=== PATIENT | male | born 1990 | race African-American/Black ===

== ENCOUNTER 2017-03-24 16:59 | Inpatient (IN) | payer OTHER ==
[~2017-03-24] VITALS: Ht 182.9 cm; Wt 62.6 kg
[2017-03-24] VITALS (10 sets, daily range): BP systolic 86–134; BP diastolic 57–97
--- NOTE | 2017-03-24 17:00 | NUR ---
PT BIBA FROM AN APT- NOTED AMS, BLOOD SUGAR TAKEN ON FIELD READ" HIGH". NOTED LABORED BREATHING, RESPONDS TO PAINFUL STIMULI. IV ACCESS WOODWORK TEACHER. VSS. SAFETY AND COMFORT MEASURES PROVIDED. WILL MONITOR.
--- NOTE | 2017-03-24 17:10 | NUR ---
MEDICATED ORDERD. FC INITIATED.
[2017-03-24] MEDS ORDERED: ONDANSETRON HCL/PF 4 MG/2 ML VIAL ONE (17:20)
[2017-03-24] MEDS ORDERED: IV NS 0.9% 1,000 ML BAG IV ONE ×4 (17:30→18:00)
[2017-03-24] MEDS ORDERED: ONDANSETRON HCL/PF 4 MG/2 ML VIAL IVP ONE (17:30)
[2017-03-24 17:35] LABS: BASOPHILS # (AUTO) 0.1 /CMM (0.0-0.2); BASOPHILS % (AUTO) 0.2 % (0.0-2.0); EOSINOPHILS # (AUTO) 0.1 /CMM (0.0-0.7); EOSINOPHILS % (AUTO) 0.2 % (0.0-6.0); HEMATOCRIT 45 % (39-51); HEMOGLOBIN 13.4 g/dL (13.5-17.5); LYMPHOCYTES # (AUTO) 2.2 /CMM (0.8-4.8); LYMPHOCYTES % (AUTO) 6.9 % (20.0-44.0); MEAN CORPUSCULAR HEMOGLOBIN 31 PG (26.0-33.0); MEAN CORPUSCULAR HGB CONC 30 g/dl (31.0-36.0); MEAN CORPUSCULAR VOLUME 105 fL (80-96); MONOCYTES # (AUTO) 0.7 /CMM (0.1-1.30); MONOCYTES % (AUTO) 2.3 % (2.0-12.0); NEUTROPHILS # (AUTO) 28.4 /CMM (1.8-8.9); NEUTROPHILS % (AUTO) 90.4 % (43.0-81.0); PLATELET COUNT (AUTO) 405 /CMM (150-450); RDW COEFFICIENT OF VARIATION 13.6 (11.5-15.0); RED BLOOD CELL COUNT(AUTO) 4.33 MIL/uL (4.5-6.0)
[2017-03-24 17:43] LABS: WHITE BLOOD COUNT (AUTO) 31.5 K/uL (4.3-11.0)
[2017-03-24 17:50] LABS: INR 0.9 (0.87-1.13); PROTHROMBIN TIME 9.4 SECS (9.5-12.7)
[2017-03-24 17:53] LABS: TROPONIN I < 0.017 ng/mL (0.00-0.056)
[2017-03-24] MEDS ORDERED: PROPOFOL 100 ML IV ONE ×2 (18:10→19:25)
[2017-03-24 18:14] LABS: ABG BASE EXCESS -26.4 mmol/L; ABG OXYGEN SATURATION 91.1 % (92.0-98.5); ABG PCO2 7.2 mmHg (35.0-45.0); ABG PH 7.044 (7.350-7.450); ABG PO2 86.3 mmHg (75.0-100.0); AaDO2 54.8 mmHg; MetHb 0.9 % (0.0-1.5); O2Hb 90.3 % (94.0-97.0); SITE, ABG Right Brachial; VENT MODE, BG ROOM AIR
[2017-03-24] MEDS: INSULIN REGULAR, HUMAN 100 UNIT in IV NS 0.9% 99 ML IV PRN ×4 (18:20→22:12)
[2017-03-24] MEDS: PROPOFOL 100 ML IV PRN ×2 (18:25→22:14)
[2017-03-24 18:26] LABS: ALANINE AMINOTRANSFERASE 108 U/L (12-78); ALBUMIN 3.5 g/dL (3.4-5.0); ALCOHOL, BLOOD < 3 mg/dL (0-0); ALKALINE PHOSPHATASE 141 U/L (46-116); ASPARTATE AMINOTRANSFERASE 41 U/L (15-37); BILIRUBIN,DIRECT 0.1 mg/dL (0.0-0.2); BILIRUBIN,TOTAL 0.4 mg/dL (0.2-1.0); CALCIUM, SERUM 9.4 mg/dL (8.5-10.1); CHLORIDE 82 mmol/L (98-107); CREATININE 2.6 mg/dL (0.6-1.3); SODIUM SERUM 127 mmol/L (136-145); TOTAL PROTEIN, SERUM 6.8 g/dL (6.4-8.2); UREA NITROGEN, BLOOD 44 mg/dL (7-18)
[2017-03-24 18:30] LABS: CARBON DIOXIDE 4 mmol/L (21-32); GLUCOSE 1358 mg/dL (74-106); POTASSIUM 6.7 mmol/L (3.5-5.1)
[2017-03-24] MEDS ORDERED: PROPOFOL 200 MG/20 ML VIAL IV ONE (18:30)
[2017-03-24 18:35] LABS: APPEARANCE,URINE Clear (CLEAR); BILIRUBIN,URINE Negative (NEGATIVE); BLOOD, URINE Trace-lysed Ery/uL (NEGATIVE); COLOR,URINE Yellow (YELLOW); KETONES,URINE >=160 (NEGATIVE); LEUKOCYTE ESTERASE ,URINE Negative (NEGATIVE); NITRITE, URINE Negative (NEGATIVE); PROTEIN,URINE Negative (NEGATIVE); UGLUCOSE 500 MG/DL mg/dL (NEGATIVE); UROBILINOGEN,URINE 0.2 EU/dL (0.2)
--- NOTE | 2017-03-24 18:36 | NUR ---
SUCCESSFULRSI DONE BY DR. PHAM. MEDS GIVEN PER PROTOCOL. RT PRESENT AT BS.
--- NOTE | 2017-03-24 18:39 | NUR ---
PT. IS INTUBATED BY ARNAV DOVER FOR AIRWAY PROTECTION. 7.5 ET TUBE, CUFF INFLATED AND SECURED @ 24 CM LIPLINE. CO2 DETECTOR CHANGED TO GOLD COLOR POST INTUBATION. BREATH SOUNDS CLEAR BILATERAL WITH EQUAL THORACIC EXPANSION. VENT SETTINGS BELLOW ORDER: AC 14 VT 450 FIO2 100% PEEP +5 AMBUBAG @ BEDSIDE. Addendum: 03/24/17 at 1840 by MIHIR PAPPAS RT Amended: Links added.
--- NOTE | 2017-03-24 18:40 | NUR ---
ATBS FOR CENTRAL LINE INSERTION.
[2017-03-24 18:48] LABS: BACTERIA,URINE Rare /HPF (None Seen); RBC,URINE 0-2 /HPF (0-2); SQUAMOUS EPITHELIAL CELL,UR Few /HPF (None Seen); WBC,URINE 0-2 /HPF (0-3)
--- NOTE | 2017-03-24 18:48 | NUR ---
ET TUBE ADJUSTED FROM 24CM TO 25 CM BEN JOSÉ MD. Addendum: 03/24/17 at 1849 by MIHIR PAPPAS RT Amended: Links added.
[2017-03-24] MEDS ORDERED: PIPERACILLIN /TAZOBACTAM 3.375 G in IV D5W 50 ML IV ONE (19:00)
[2017-03-24 19:09] LABS: BAND % (MANUAL) 8 % (0.0-5.0); LYMPHOCYTES % (MANUAL) 11 % (16-48); MONOCYTES % (MANUAL) 4 % (0-11.0); NEUTROPHILS % (MANUAL) 77 (42-76)
[2017-03-24] MEDS ORDERED: NOREPINEPHRINE 4 MG/4 ML AMPUL IV ONE ×2 (19:10→19:14)
[2017-03-24] MEDS ORDERED: MIDAZOLAM HCL 5 MG/5ML VIAL ONE (19:22)
[2017-03-24] MEDS ORDERED: MIDAZOLAM HCL 5 MG/5ML VIAL IV ONE (19:30)
[2017-03-24 19:35] LABS: ABG BASE EXCESS -25.5 mmol/L; ABG PCO2 19.1 mmHg (35.0-45.0); ABG PH 6.985 (7.350-7.450); COHb 0.3 % (0.5-1.5); MetHb 0.8 % (0.0-1.5); O2Hb 97.9 % (94.0-97.0); PEEP,BG 0 cm H2O; SITE, ABG Right Brachial; VENT MODE, BG AC 14 450 100%; VT, ABG 450 mL
--- NOTE | 2017-03-24 19:36 | NUR ---
REPORT GIVEN TO EULA TIMMONS FOR ICU 257
[2017-03-24] MEDS ORDERED: PIPERACILLIN /TAZOBACTAM 3.375 G VIAL IV ONE (19:41)
--- NOTE | 2017-03-24 19:52 | NUR ---
PT TRANSPORTED TO ICU VIA STRETCHER WITH RN AND RT, ACLS PROTOCOL.
[2017-03-24] MEDS ORDERED: NOREPINEPHRINE 8 MG in IV D5W 500 ML IV PRN (20:00)
[2017-03-24] MEDS ORDERED: INSULIN REGULAR, HUMAN 100 UNIT in IV NS 0.9% 99 ML IV PRN ×2 (20:00)
[2017-03-24] MEDS ORDERED: LORAZEPAM INJ 2 MG/ML VIAL IVP PRN (20:00)
[2017-03-24] MEDS ORDERED: IV NS 0.9% 1,000 ML IV PRN (20:00)
[2017-03-24] MEDS ORDERED: VANCOMYCIN 1 GM in IV D5W 250 ML IV ONE (20:00)
--- NOTE | 2017-03-24 20:00 | NUR ---
FURNITURE DIPPER. TEMPERATURE 93.2 JAMIE YECENIA INITIATED.0000 TEMPERATURE 97.4. JAMIE YECENIA OFF.
[2017-03-24] MEDS ORDERED: BLOOD SUGAR DIAGNOSTIC 1 EACH STRIP IN ONE ×2 (21:00→21:30)
[2017-03-24] MEDS: ALBUTEROL FS 2.5 MG/3 ML VIAL.NEB NEB SCH (21:00)
[2017-03-24] MEDS: BLOOD SUGAR DIAGNOSTIC 1 EACH STRIP IN SCH ×3 (21:17→23:14)
--- NOTE | 2017-03-24 21:25 | NUR ---
DIMENSION STONE QUARRY SUPERVISOR: RELAYED TO EULA PRIMARY NURSE AND ARMANDO Boo CHARGE NURSE ACCUCHEK RESULTS ABOVE 600 FOR 1999 AND 2099 AND LACTIC ACID=3.0.
[2017-03-24] MEDS ORDERED: VANCOMYCIN 1 GM VIAL ONE (21:33)
[2017-03-24 21:35] LABS: ABG BASE EXCESS -17.6 mmol/L; ABG OXYGEN SATURATION 98.8 % (92.0-98.5); ABG PCO2 30.1 mmHg (35.0-45.0); ABG PH 7.143 (7.350-7.450); ABG PO2 262.2 mmHg (75.0-100.0); AaDO2 132.5 mmHg; COHb 0.2 % (0.5-1.5); MetHb 0.9 % (0.0-1.5); O2Hb 97.7 % (94.0-97.0); PEEP,BG 0 cm H2O; SITE, ABG Right Brachial
[2017-03-24] MEDS ORDERED: BLOOD SUGAR DIAGNOSTIC 1 EACH STRIP IN STA ×3 (22:20→23:00)
--- NOTE | 2017-03-24 22:59 | NUR ---
FAST FOOD CREW MEMBER. ADMISSION. ADMITTED THE PT FROM ER VIA [facility]. ORALLY INTUBATED SEDATED WITH DIPRIVAN, DIAGNOSED WITH DKA AND SEPSIS. ETT 7.5CM,AC 18,LIP 24CMS, TV 450,FIO2 60%. SAT 100%, DRIP MOLDER SHOWING NSR. IV RT IJ TRIPLE LUMEN DIPRIVAN 50MCG/KG/MIN, LEVOPHED 14MCG/MIN. INSULIN 5UNITS. FC PATENT. OGT INTACT. TEMPERATURE 93. BAGGER HUGGER PLACED. WILL CONTINUE TO MONITOR.
--- NOTE | 2017-03-24 23:03 | NUR ---
AIRCRAFT SALES REPRESENTATIVE. 2100, 2200. 2300 BLOOD SUGAR NOT SHOWING ICU GLUCOMETER. CALLED THE LAB AND CHECKED. BLOOD SUGAR >600. INSULIN DRIP RUNNING PER PROTOCOL. WILL CONTINUE TO MONITOR.
[2017-03-25] VITALS (68 sets, daily range): BP systolic 76–153; BP diastolic 50–102
--- NOTE | 2017-03-25 | NUR ---
BALLOON TESTER. PT BLOOD SUGAR 2100, 2200, 2300 >600.INSULIN DRIP STARTED PER PROTOCOL ALGORITHM#.4BLOOD SUGAR 494. ALGORITHM #1 INSULIN DRIP PROTOCOL INITIATED.
[2017-03-25] MEDS ORDERED: INSULIN REGULAR, HUMAN 100 UNIT/ML 3 ML VIAL ONE (00:04)
[2017-03-25] MEDS ORDERED: PIPERACILLIN /TAZOBACTAM 3.375 G VIAL IV ONE ×2 (00:10→06:03)
[2017-03-25 00:39] LABS: CALCIUM, SERUM 8.6 mg/dL (8.5-10.1); CREATININE 2.3 mg/dL (0.6-1.3); POTASSIUM 3.3 mmol/L (3.5-5.1)
[2017-03-25] MEDS ORDERED: ACETAMINOPHEN 325 MG TABLET ONE (00:48)
[2017-03-25] MEDS: ACETAMINOPHEN 325 MG TABLET PO PRN ×3 (00:50→14:00)
[2017-03-25] MEDS: ALBUTEROL FS 2.5 MG/3 ML VIAL.NEB NEB SCH ×3 (01:00→20:21)
[2017-03-25] MEDS: BLOOD SUGAR DIAGNOSTIC 1 EACH STRIP IN SCH ×14 (01:06→21:32)
[2017-03-25] MEDS: PIPERACILLIN /TAZOBACTAM 3.375 G in IV D5W 50 ML IV SCH ×5 (01:07→23:40)
--- NOTE | 2017-03-25 01:12 | NUR ---
HEATER TENDER. SEPSIS REASSESSMENT ER DONE.
--- NOTE | 2017-03-25 01:13 | NUR ---
CONTACT LENS MOLDER. AFTER FLUID REASSESSMENT ER DONE. 4L NS GIVEN FROM ER.
[2017-03-25] MEDS ORDERED: POTASSIUM CL. PREMIX PERIPHER. 50 ML IV SCH (01:30)
[2017-03-25] MEDS ORDERED: IV NS 0.9% 1,000 ML BAG IV PRN (01:30)
--- NOTE | 2017-03-25 01:46 | NUR ---
PT WAS AGITATED DIPRIVAN INCREASED UP TO 100MCG/KG/MIN. PER DR HEALY.
[2017-03-25] MEDS ORDERED: IV NS 0.9% 1,000 ML IV PRN (02:00)
[2017-03-25] MEDS ORDERED: POTASSIUM CL. PREMIX PERIPHER. 50 ML ONE (02:10)
[2017-03-25] MEDS ORDERED: POTASSIUM CHLORIDE 20 MEQ POWDER PACKET ONE (02:14)
[2017-03-25] MEDS ORDERED: Thiamine 100 MG/ML VIAL ONE (02:26)
[2017-03-25] MEDS: PROPOFOL 100 ML IV PRN ×3 (02:28→07:29)
[2017-03-25] MEDS ORDERED: POTASSIUM CHLORIDE 20 MEQ POWDER PACKET GT ONE (02:30)
[2017-03-25] MEDS: INSULIN REGULAR, HUMAN 100 UNIT in IV NS 0.9% 99 ML IV PRN ×2 (02:31)
[2017-03-25] MEDS: Thiamine 100 MG in IV D5W 50 ML IV SCH ×3 (02:33→18:11)
[2017-03-25] MEDS ORDERED: Folic acid 1 MG/0.2 ML VIAL ONE (02:53)
--- NOTE | 2017-03-25 03:00 | NUR ---
MULTIMEDIA SERVICES COORDINATOR. DR HEALY AT BED SIDE ASSESS THE PT. NEW ORDER RECEIVED.
[2017-03-25] MEDS: Folic acid 1 MG in IV D5W 50 ML IV SCH ×3 (03:08→18:11)
--- NOTE | 2017-03-25 03:54 | NUR ---
BILL PEDDLER LEVO OFF 2100. RECEIVED THE PT BP 130/67. TITRATE AND HELD
[2017-03-25] MEDS ORDERED: IV D5W 1,000 ML IV ONE (04:30)
[2017-03-25] MEDS ORDERED: IV D5/ 0.9% NACL 1,000 ML IV PRN (04:30)
[2017-03-25 05:06] LABS: BASOPHILS % (AUTO) 0.1 % (0.0-2.0); HEMATOCRIT 36 % (39-51); LYMPHOCYTES # (AUTO) 1.6 /CMM (0.8-4.8); LYMPHOCYTES % (AUTO) 6.4 % (20.0-44.0); MEAN CORPUSCULAR HEMOGLOBIN 31 PG (26.0-33.0); MEAN CORPUSCULAR HGB CONC 33 g/dl (31.0-36.0); MEAN CORPUSCULAR VOLUME 93 fL (80-96); MONOCYTES # (AUTO) 2.1 /CMM (0.1-1.30); MONOCYTES % (AUTO) 8.9 % (2.0-12.0); NEUTROPHILS # (AUTO) 20.5 /CMM (1.8-8.9); NEUTROPHILS % (AUTO) 84.6 % (43.0-81.0); PLATELET COUNT (AUTO) 306 /CMM (150-450); RDW COEFFICIENT OF VARIATION 13.1 (11.5-15.0); RED BLOOD CELL COUNT(AUTO) 3.85 MIL/uL (4.5-6.0); WHITE BLOOD COUNT (AUTO) 24.3 K/uL (4.3-11.0)
[2017-03-25 05:16] LABS: PROTHROMBIN TIME 10.4 SECS (9.5-12.7)
[2017-03-25 05:23] LABS: ALBUMIN 2.8 g/dL (3.4-5.0); BILIRUBIN,TOTAL 0.3 mg/dL (0.2-1.0); CALCIUM, SERUM 8.6 mg/dL (8.5-10.1); CREATININE 2.1 mg/dL (0.6-1.3); POTASSIUM 4.9 mmol/L (3.5-5.1); TOTAL PROTEIN, SERUM 5.9 g/dL (6.4-8.2)
[2017-03-25 05:31] LABS: CREATINE KINASE MB 17.9 ng/mL (0-3.6)
[2017-03-25 05:42] LABS: TROPONIN I 1.831 ng/mL (0.00-0.056)
[2017-03-25 05:43] LABS: IRON, SERUM 8 ug/dl (50-175); TOTAL IRON BINDING CAPACITY 231 ug/dl (250-450)
--- NOTE | 2017-03-25 06:30 | NUR ---
MECHANICAL MANUFACTURING ENGINEER. AM CARE. ORAL CARE, BED BATH GIVEN LINEN CHANGED, REMAINING SAME VENT SETTING TOLERATED WELL. SAT 98%. NO ACUTE DISTRESS NOTED. DENTAL RESIDENT SHOWING S TACH. . IV RT IJ DIPRIVAN 100MCG/KG/MIN,INSULIN DRIP PER GLUCOSE LEVEL. IVF D5NS 200ML/H. FC PATENT. TEMPERATURE 101.4AT 0200. TYLENOL GIVEN PER ORDERED. AT THIS TIME TEMP 99.3. OGT INTACT. CLAMPED. NPO. HOB ELEVATED. TURN AND REPOSITION Q2H. DENZEL SOFT WRIST RESTRAINT CHECKED AND RELEASED, NO INJURY OR REDNESS NOTED. NPO./WILL CONTINUE TO MONITOR VITALS.
--- NOTE | 2017-03-25 06:45 | NUR ---
MARKET DEVELOPMENT DIRECTOR. PT INFORMATION GIVEN FATHER , SISTER AND ROOM MATE. ROOM MATE SPEEDY CELL NO [phone].
[2017-03-25 07:28] LABS: BAND % (MANUAL) 6 % (0.0-5.0); LYMPHOCYTES % (MANUAL) 6 % (16-48); MONOCYTES % (MANUAL) 2 % (0-11.0); NEUTROPHILS % (MANUAL) 86 (42-76)
--- NOTE | 2017-03-25 08:00 | NUR ---
PT SEDATED WITH DIPRIVAN, REACTS PT TACTILE STIMULI. NO PRESSORS, VSS. INSULIN GTT DECREASED TO 1 U/HR.
--- NOTE | 2017-03-25 08:00 | NUR ---
DIPRIVAN AT 100 MICS. PT OPENS EYES DOES FOLLOW COMMANDS, STRONGLY COUGHING AND BITING ETT WHEN SUCTIONED. TITRATED DOWN TO 50MIC.
[2017-03-25] MEDS ORDERED: HYDROMORPHONE INJ 2 MG/ML DISP.SYRIN IV PRN (08:30)
[2017-03-25 08:33] LABS: ABG PCO2 41.4 mmHg (35.0-45.0); ABG PH 7.368 (7.350-7.450); ABG PO2 193.7 mmHg (75.0-100.0); SITE, ABG Right Radial
[2017-03-25 08:34] LABS: ABG BASE EXCESS -1.9 mmol/L; AaDO2 43.9 mmHg; COHb 0.3 % (0.5-1.5); MetHb 1.2 % (0.0-1.5); O2Hb 96.5 % (94.0-97.0); PEEP,BG 5 cm H2O; VT, ABG 450 mL
[2017-03-25] MEDS ORDERED: FEE PK DOSING 1 MIN EA MC ONE (08:52)
--- NOTE | 2017-03-25 09:12 | NUR ---
MALE PT RECEIVED ORALLY INTUBATED WITH 7.5 ET-TUBE SECURED AT 24CM. WITH BLUE STABILIZER. SETTINGS ORDERED. FIO2 DECREASED TO .30 ZERO DISTRESS NOTED AT THIS TIME. ALARMS SET AND AUDIBLE. PT CURRENTLY SEDATED. B/S EQUAL. SPO2 99% ABG DONE AND IN NORMAL RANGE. RN AWARE OF CHANGED
[2017-03-25] MEDS: PANTOPRAZOLE 40 MG VIAL IV SCH (09:32)
[2017-03-25] MEDS: VANCOMYCIN 0.75 GM in IV D5W 250 ML IV SCH ×2 (09:32→21:34)
[2017-03-25] MEDS: HEPARIN SODIUM, PORCINE 5000 UNITS/1 ML VIAL SQ SCH ×2 (09:33→21:33)
[2017-03-25] MEDS: IV NS 0.9% 1,000 ML IV PRN ×2 (09:38→17:10)
[2017-03-25] MEDS ORDERED: PROPOFOL 100 ML IV PRN (10:30)
[2017-03-25] MEDS ORDERED: DEXTROSE 50%-WATER 50 ML DISP.SYRIN IV PRN (12:00)
[2017-03-25] MEDS: INSULIN REGULAR, HUMAN 100 UNIT/ML 3 ML VIAL SQ PRN ×2 (12:17→16:42)
--- NOTE | 2017-03-25 12:21 | NUR ---
INSULIN GTT D/C AT 1200 PER VALERY LARKIN. PB 229 8UNITS PER ZION WARD.
[2017-03-25] MEDS ORDERED: BLOOD SUGAR DIAGNOSTIC 1 EACH STRIP IN SCH ×2 (13:00)
--- NOTE | 2017-03-25 14:00 | NUR ---
ST UP TO 126 ON MONITOR RECTAL TEMP 100.1 TYLENOL AND COOLING MEASURES INITIATED.
[2017-03-25 14:56] LABS: CALCIUM, SERUM 8.4 mg/dL (8.5-10.1); CREATININE 2.7 mg/dL (0.6-1.3); POTASSIUM 4.7 mmol/L (3.5-5.1)
--- NOTE | 2017-03-25 15:04 | NUR ---
PROPOFOL OFF. PT PLACED ON CPAP PS OF 8. RR 18 -20
--- NOTE | 2017-03-25 16:00 | NUR ---
TEMP 99.6 NOW. PT CONTINUES ON CPAP. RR18-22 SAT 100%, PT WAKES UP TO TACTILE STIMULI BUT, DOES NOT FOLLOW COMMANDS AT THIS TIME.
--- NOTE | 2017-03-25 19:00 | NUR ---
PT'S FAMILY UPDATED ON PT'S PROGRESS. PT CONTINUES ON CPAP. RR18-22 SAT 100%, PT WAKES UP TO TACTILE STIMULI BUT, STILL DOES NOT FOLLOW COMMANDS.
--- NOTE | 2017-03-25 20:00 | NUR ---
KAPOK MACHINE OPERATOR -NOTES - PT RECEIVED IN BED, ASLEEP, NOT WAKING UP, OFF SEDATION SINCE 1500. PT IS INTUBATED WITH 7.5 ETT 24 CM AT LIP, PT IS ON CPAP, PRESSURE SUPPORT 8, FI02 30%, TV 450. PT IS IN SINUS TACHYCARDIA HR 110S, BP 130S-150S. PT IS NPO WITH OGT CLAMPED, ACCUCHECK Q4H. PT HAS F/C WITH GOOD URINE OUTPUT. SKIN INTACT. PT HAS R AC 18G, L AC 18G, AND R SUBCLAVIAN CENTRAL TLC. WILL CONTINUE TO MONITOR
--- NOTE | 2017-03-25 21:30 | NUR ---
PT WAS SUCTIONED, THEN PT STARTED TO GET UP AND TRY TO PULL ETT FOR APPROX 5 MINS, DID NOT FOLLOW COMMANDS, BUT WAS VERY STRONG WITH HIS ARMS AND KICKING UP WITH LEGS. AFTER A WHILE, PT WENT BACK TO SLEEP. FAMILY SISTER SARA AT BEDSIDE,
--- NOTE | 2017-03-25 22:00 | NUR ---
PTS FATHER DEBO MCNEIL CALLED, UPDATED ON PT CONDITION AND PLAN OF CARE
[2017-03-26] VITALS (43 sets, daily range): BP systolic 124–170; BP diastolic 74–107
[2017-03-26] MEDS: BLOOD SUGAR DIAGNOSTIC 1 EACH STRIP IN SCH ×6 (00:27→21:00)
[2017-03-26] MEDS: INSULIN REGULAR, HUMAN 100 UNIT/ML 3 ML VIAL SQ PRN ×5 (00:30→22:06)
[2017-03-26] MEDS: IV NS 0.9% 1,000 ML IV PRN ×3 (00:48→11:45)
--- NOTE | 2017-03-26 01:00 | NUR ---
PT OPENED EYES, TRIED TO GET UP OUT OF BED, LOOKED AT ME, DID NOT FOLLOW COMMANDS, THEN WENT BACK TO SLEEP
--- NOTE | 2017-03-26 01:30 | NUR ---
PTS FATHER ASHLEY MCNEIL CALLED, UPDATED ON PT CONDITION AND PLAN OF CARE
[2017-03-26] MEDS: ALBUTEROL FS 2.5 MG/3 ML VIAL.NEB NEB SCH ×4 (01:42→19:44)
--- NOTE | 2017-03-26 04:45 | NUR ---
PT AWAKE AGAIN, NOW FOLLOWING COMMANDS, ABLE TO ANSWER QUESTIONS APPROPRIATELY, PT IS VERY STRONG AND PULLING RESTRAINTS TO PULL OUT ETT, PT NODS YES THAT HE WANTS TO BE EXTUBATED, SO WITH RT NARENDRA AND PULVERIZER FEEDER INGA, WE EXTUBATED THE PATIENT. HIS VOICE WAS VERY HOARSE, AND THEN HE WENT BACK TO SLEEP, NO DIFFICULTY BREATHING, ABLE TO CLEAR SECRETIONS, 02SAT 100% ON ROOM AIR.
[2017-03-26 05:24] LABS: BASOPHILS % (AUTO) 0.2 % (0.0-2.0); EOSINOPHILS % (AUTO) 0.2 % (0.0-6.0); HEMATOCRIT 35 % (39-51); HEMOGLOBIN 11.1 g/dL (13.5-17.5); LYMPHOCYTES # (AUTO) 1.9 /CMM (0.8-4.8); LYMPHOCYTES % (AUTO) 11.5 % (20.0-44.0); MEAN CORPUSCULAR HEMOGLOBIN 30 PG (26.0-33.0); MEAN CORPUSCULAR HGB CONC 32 g/dl (31.0-36.0); MEAN CORPUSCULAR VOLUME 94 fL (80-96); MONOCYTES % (AUTO) 5.9 % (2.0-12.0); NEUTROPHILS # (AUTO) 13.8 /CMM (1.8-8.9); NEUTROPHILS % (AUTO) 82.2 % (43.0-81.0); PLATELET COUNT (AUTO) 211 /CMM (150-450); RDW COEFFICIENT OF VARIATION 13.8 (11.5-15.0); RED BLOOD CELL COUNT(AUTO) 3.66 MIL/uL (4.5-6.0); WHITE BLOOD COUNT (AUTO) 16.7 K/uL (4.3-11.0)
[2017-03-26 05:29] LABS: ALBUMIN 2.5 g/dL (3.4-5.0); BILIRUBIN,TOTAL 0.3 mg/dL (0.2-1.0); CALCIUM, SERUM 8.5 mg/dL (8.5-10.1); CREATININE 2.5 mg/dL (0.6-1.3); MAGNESIUM 2.5 mg/dL (1.8-2.4); PHOSPHORUS 3.1 mg/dL (2.5-4.9); POTASSIUM 4.1 mmol/L (3.5-5.1); TOTAL PROTEIN, SERUM 5.6 g/dL (6.4-8.2)
[2017-03-26 05:41] LABS: TROPONIN I 1.369 ng/mL (0.00-0.056)
[2017-03-26] MEDS: PIPERACILLIN /TAZOBACTAM 3.375 G in IV D5W 50 ML IV SCH ×4 (06:12→23:33)
[2017-03-26 07:34] LABS: ABG BASE EXCESS -1.9 mmol/L; ABG PCO2 38.1 mmHg (35.0-45.0); ABG PH 7.393 (7.350-7.450); ABG PO2 78.7 mmHg (75.0-100.0); AaDO2 25.4 mmHg; COHb 0.3 % (0.5-1.5); MetHb 0.9 % (0.0-1.5); O2Hb 93.9 % (94.0-97.0); SITE, ABG Right Radial; VENT MODE, BG ROOM AIR
--- NOTE | 2017-03-26 07:55 | NUR ---
ICU/RN INITIAL NOTES,AM RECEIVED REPORT FROM NIGHT NURSE. PT EXTUBATED OVERNIGHT. AT THIS TIME PT IS SLEEPY AND DIFFICULT TO AROUSE. RESPONDS TO PAINFUL STIMULI, OPENS EYES THEN GOES BACK TO SLEEP. WAS AT BEDSIDE. ORDERS FOR STAT ABG RECEIVED, WHEN RESULTED WNL, BS 218. PT ON ROOM AIR, MAINTAINING 02 SAT 99-100%, NO DISTRESS OR DIFFICULTY BREATHING NOTED. RIGHT SUBCLAVIAN CENTRAL LINE IN PLACE. IV FLUIDS INFUSING ORDERED. JAQUEZ IN PLACE DRAINING YELLOW URINE. PT NPO AT THIS TIME. ALL NEEDS WILL BE ATTENDED TO, SAFETY MEASURES TAKEN, BED IN LOW POSITION, SIDE RIALS UP, CALL LIGHT WITHIN REACH. WILL CONTINUE TO CLOSELY MONITOR PT.
--- NOTE | 2017-03-26 08:23 | NUR ---
RT HHN TX NOT GIVEN DUE TO TACHYCARDIA.
[2017-03-26] MEDS: HEPARIN SODIUM, PORCINE 5000 UNITS/1 ML VIAL SQ SCH ×2 (08:50→21:23)
[2017-03-26] MEDS: PANTOPRAZOLE 40 MG VIAL IV SCH (08:50)
[2017-03-26] MEDS: VANCOMYCIN 0.75 GM in IV D5W 250 ML IV SCH (08:52)
[2017-03-26] MEDS: Folic acid 1 MG in IV D5W 50 ML IV SCH (10:33)
[2017-03-26] MEDS: Thiamine 100 MG in IV D5W 50 ML IV SCH (10:33)
--- NOTE | 2017-03-26 11:30 | NUR ---
ICU/RN: PT UPDATE PT ALERT, FOLLOWS COMMANDS. AAOX3. NO DISTRESS. NURSING SWALLOW EVAL DONE. NO ISSUES NOTED. PER MD ADVANCED DIET. WILL CONTINUE TO MONITOR AND ASSESS
[2017-03-26] MEDS: IV 1/2NS 1000 ML 1,000 ML IV PRN (12:44)
[2017-03-26] MEDS: FOLIC ACID 1 MG TABLET PO SCH (17:24)
[2017-03-26] MEDS: THIAMINE HCL 100 MG TABLET PO SCH (17:24)
--- NOTE | 2017-03-26 18:43 | NUR ---
ICU/RN ENDING NOTES,AM REPORT WILL BE ENDORSED TO NIGHT NURSE FOR CONTINUATION OF CARE. PT ALERT, FOLLOWS COMMANDS. ON ROOM AIR, NO ACUTE DISTRESS NOTED, SINUS TACHY ON TELE. ALL NEEDS ATTENDED TO, BED BATH GIVEN, LINENS CHANGED. SAFETY MEASURES TAKEN, BED IN LOW POSITION, SIDE RAILS UP, CALL LIGHT WITHIN REACH. WILL CONTINUE CARE.
--- NOTE | 2017-03-26 21:00 | NUR ---
TOUR AGENT - REC'D REPORT FROM HANSEL RN. REC'D PT. VERY DROWSY, SLOW TO ANSWER QUESTIONS ASKED. ACCU-CHECK=#408, REPEATED = #438. DR. MONET ZARAGOZA PHONED. ORDERS REC'D. PT. WAS ADM. W/REG. INSULIN AT 20UNITS/SQ. JAQUEZ CATH TO GRAVITY W/GOOD UOP. PT. IS BEGGING FOR H20. PT. ALREADY DRANK ONE PITCHER. PT.IS ON R/A & IS SATTING >96%. LOW GRADE TEMPS. PT'S SISTER AT BS. PT. STATES HE IS HUNGRY. UNSWEETENED APPLESAUCE GIVEN TO PT. SKIN INTACT. RSC-TL HAS 0.45%NS INFUSING AT 75CC/HR. CONT. POC.
[2017-03-26] MEDS: VANCOMYCIN 1 GM in IV D5W 250 ML IV SCH (21:22)
[2017-03-27] VITALS (27 sets, daily range): BP systolic 124–162; BP diastolic 80–112
--- NOTE | 2017-03-27 01:00 | NUR ---
TRUER PINION AND WHEEL - PT'S GLUCOSE IS #233/PT. COVERED W/8 UNITS OF REG. INSULIN. PT'S ORAL TEMP AT 101.9. TYLENOL 650MG/PO ADM. COOLING MEASURES STARTED. CONT. POC.
[2017-03-27] MEDS: ACETAMINOPHEN 325 MG TABLET PO PRN ×4 (01:19→23:36)
[2017-03-27] MEDS: INSULIN REGULAR, HUMAN 100 UNIT/ML 3 ML VIAL SQ PRN ×7 (01:23→23:54)
[2017-03-27] MEDS: ALBUTEROL FS 2.5 MG/3 ML VIAL.NEB NEB SCH ×2 (01:30→19:30)
[2017-03-27] MEDS: BLOOD SUGAR DIAGNOSTIC 1 EACH STRIP IN SCH ×7 (02:14→23:52)
[2017-03-27 05:12] LABS: BASOPHILS % (AUTO) 0.3 % (0.0-2.0); EOSINOPHILS % (AUTO) 0.4 % (0.0-6.0); HEMATOCRIT 30 % (39-51); HEMOGLOBIN 10.2 g/dL (13.5-17.5); LYMPHOCYTES # (AUTO) 1.3 /CMM (0.8-4.8); LYMPHOCYTES % (AUTO) 16.5 % (20.0-44.0); MEAN CORPUSCULAR HEMOGLOBIN 31 PG (26.0-33.0); MEAN CORPUSCULAR HGB CONC 34 g/dl (31.0-36.0); MEAN CORPUSCULAR VOLUME 92 fL (80-96); MONOCYTES # (AUTO) 0.4 /CMM (0.1-1.30); MONOCYTES % (AUTO) 5.1 % (2.0-12.0); NEUTROPHILS # (AUTO) 6.2 /CMM (1.8-8.9); NEUTROPHILS % (AUTO) 77.7 % (43.0-81.0); PLATELET COUNT (AUTO) 153 /CMM (150-450); RDW COEFFICIENT OF VARIATION 13.5 (11.5-15.0); RED BLOOD CELL COUNT(AUTO) 3.29 MIL/uL (4.5-6.0)
[2017-03-27] MEDS: PIPERACILLIN /TAZOBACTAM 3.375 G in IV D5W 50 ML IV SCH ×4 (05:20→23:30)
[2017-03-27] MEDS: IV 1/2NS 1000 ML 1,000 ML IV PRN (05:29)
[2017-03-27 05:40] LABS: ALBUMIN 2.2 g/dL (3.4-5.0); BILIRUBIN,TOTAL 0.5 mg/dL (0.2-1.0); CALCIUM, SERUM 8.4 mg/dL (8.5-10.1); CREATININE 1.4 mg/dL (0.6-1.3); MAGNESIUM 1.8 mg/dL (1.8-2.4); PHOSPHORUS 1.7 mg/dL (2.5-4.9); TOTAL PROTEIN, SERUM 5.6 g/dL (6.4-8.2)
[2017-03-27 05:43] LABS: TROPONIN I 0.417 ng/mL (0.00-0.056)
--- NOTE | 2017-03-27 06:30 | NUR ---
DESPATCH CLERK - A COMPLETE BEDBATH ADM. AT 2AM. PT. HAD LARGE AMT. OF DIARRHEA IN BEDPAN. TROPONIN LEVEL PHONED IN FROM LAB - #[phone]. VALUE IS TRENDING DOWNWARD. 5AM BS = #228, PT. COVERED W/8 UNITS OF REG. INSULIN. PT. IS RESTING W/EYES CLOSED. REPORT EN - DORSED TO CARLOS EDUARDO ITMMONS. CONT. POC.
--- NOTE | 2017-03-27 07:40 | NUR ---
NIGHT COURT MAGISTRATE NOTE PATIENT IN BED ,RESTING COMFORTABLY , ON TELE MONITOR ST 114 ,ON RA NO SOB NOTED AT THIS TIME SAT 95%, NOTED T 101.5 WILL START COOLING MEASURE , WITH JAQUEZ CATH WITH YELLOW COLOR URINE , ON IVF ORDERED , BED IN LOWEST AND LOCKED POSITION ,ON IVF ORDERED. WILL CONT TO MONITOR CLOSELY
[2017-03-27] MEDS: THIAMINE HCL 100 MG TABLET PO SCH ×2 (08:22→17:10)
[2017-03-27] MEDS: PANTOPRAZOLE 40 MG VIAL IV SCH (08:22)
[2017-03-27] MEDS: FOLIC ACID 1 MG TABLET PO SCH ×2 (08:22→17:10)
[2017-03-27] MEDS: HEPARIN SODIUM, PORCINE 5000 UNITS/1 ML VIAL SQ SCH ×2 (08:28→21:55)
[2017-03-27] MEDS: VANCOMYCIN 1 GM in IV D5W 250 ML IV SCH ×2 (08:31→21:52)
--- NOTE | 2017-03-27 12:31 | NUR ---
Social service consult requested by IRIS Lugo for alcohol abuse. Pt. is a 27 year old male who was admitted to [facility] for DKA. SW met with pt. bedside. Pt. is alert and oriented x 3. Pt. states he resides with his sister Concepción's ex at [facility], in [place]. Pt. sister Concepción is his emergency contact and can be reached at . Pt. was asking for his lunch. SW informed him it should arrive shortly. Pt. denies extensive alcohol abuse and states he only drinks sometimes and when he does it usually is beer and vodka. Pt. denies doing any drugs. Pt. smokes marijuana and cigarettes but would not elaborate as to much marijuana and how many cigarettes per day. Pt. suffers from Depression and Anxiety and does not take any medication for it at this time. SW offered pt. if he would like to see a psychiatrist. Pt. stated maybe later. Pt. denies suicidal/homicidal ideations and visual/auditory hallucinations at this time. RANDALL updated IRIS Melendez and ICU nurse discharge Gil regarding pt. needing a psych. consult when downgraded to med surg floor. No other social service needs are requested at this time. SW is available if needed.
--- NOTE | 2017-03-27 12:33 | NUR ---
TANK SYSTEMS MAINTAINER NOTE SEEN BY ARNOLDO DICKINSON RN SAS ARCHITECT AND DR CLAIRE NOTIFIED THAT BOTH HANDS AND RT ARM WITH SWELLING, KEEP ELEVATED TOLERATED ALSO NOTIFIED THAT T 101.9 TYLENOL EARLIER GIVEN EARLIER AND BLOOD SUGAR LATEST 174 MG\ DL ON AGGRESSIVE SLIDING SCALE , STATED GET BLOOD CX AND REMOVE CENTRAL LINE AND REMOVE JAQUEZ ALSO INFORM THAT PATIENT HAS LOOSE STOOL,NO ODOR NOTED SMALL AMT , SPOKE WITH ARNOLDO TIMMONS SAS ARCHITECT NOTIFIED RHIANNA PER US TECH PATIENT HAS 470 ML URINE RETAINED , STILL OK TO REMOVE JAQUEZ WILL F\U Addendum: 03/27/17 at 1505 by CARLOS EDUARDO MIGUEL RN NOTIFIED TO ROBIN TIMMONS NP THAT SBP 145-157 STATED THAT WILL CHECK IT OUT
--- NOTE | 2017-03-27 14:00 | NUR ---
BRUSHER MACHINE NOTE SPOKE WITH ARNOLDO DICKINSON NOTIFIED THAT PATENT VERY WEEK AND UNABLE TO GET OUT OFF BED AND HAS A FEVER , WILL TRY LATTER ON WHEN PATIENT MORE STABLE
--- NOTE | 2017-03-27 14:19 | NUR ---
BOTTOM MAN NOTE UA COLLECTED ORDERED, GISELE IS REMOVED, WILL CONT TO MONITOR CLOSELY Addendum: 03/27/17 at 1443 by CARLOS EDUARDO MIGUEL RN BLOOD CX DONE ORDERED
--- NOTE | 2017-03-27 15:00 | NUR ---
RED LEADER NOTE RT INTERNAL JUGULAR VEIN TCL REMOVED ORDERED UNDER STERIL TECHNIC , PRESSURE DRESSING APPALLED FOR 5 MIN , NO SOB NOTED ,NO C]O PAIN , WILL CONT TO MONITOR CLOSELY
[2017-03-27 15:12] LABS: APPEARANCE,URINE CLEAR (CLEAR); BILIRUBIN,URINE NEGATIVE (NEGATIVE); BLOOD, URINE 3+ Ery/uL (NEGATIVE); COLOR,URINE YELLOW (YELLOW); KETONES,URINE NEGATIVE (NEGATIVE); LEUKOCYTE ESTERASE ,URINE NEGATIVE (NEGATIVE); NITRITE, URINE NEGATIVE (NEGATIVE); PROTEIN,URINE TRACE mg/dl (NEGATIVE); UGLUCOSE 1+ mg/dL (NEGATIVE); UROBILINOGEN,URINE 0.2 EU/dL (0.2)
[2017-03-27] MEDS ORDERED: K PHOS NEUTRAL 250 MG TABLET PO ONE (15:30)
[2017-03-27 15:36] LABS: BACTERIA,URINE None seen /HPF (None Seen); RBC,URINE 21-50 /HPF (0-2); SQUAMOUS EPITHELIAL CELL,UR Rare /HPF (None Seen); WBC,URINE 0-2 /HPF (0-3)
--- NOTE | 2017-03-27 15:54 | NUR ---
HYDRAULIC PUNCH PRESS OPERATOR NOTE ABLE TO URINATE 450 ML OF YELLOW COLOR URINE AFTER JAQUEZ CATH WAS REMOVED
[2017-03-27] MEDS: LACTOBACILLUS RHAMNOSUS GG 1 EACH CAP.SPRINK PO SCH (17:10)
--- NOTE | 2017-03-27 17:32 | NUR ---
BRANCH SERVICE SPECIALIST NOTE T 99.9 AT THIS TOME ALL NEEDS ATTENDED ,WILL CONT TO MONITOR CLOSELY
--- NOTE | 2017-03-27 18:39 | NUR ---
SATELLITE DISH REPAIRER NOTE TRANSFERRED PATIENT TO [facility] ORDERED BY BED BY ACLS PROTOCOL WITH STABLE CONDITION, REPORT GIVEN TO CARYN TIMMONS Addendum: 03/27/17 at 1851 by CARLOS EDUARDO MIGUEL RN ALL IV ATB AND CHART WAS GIVEN TO MATEO TIMMONS CHART NURSE
--- NOTE | 2017-03-27 19:54 | NUR ---
CHANGE OF SHIFT REPORT PT RESTING COMFORTABLY IN BED WITH EYES CLOSED. NO S/S OR C/O PAIN OR DISTRESS NOTED. SIDE RAILS UP X2, CALL LIGHT LEFT WITHIN REACH. PT KEPT CLEAN, DRY, AND COMFORTABLY. NO SIGNIFICANT CHANGES SINCE TRANSFER. REPORT GIVEN TO FANY TIMMONS.
--- NOTE | 2017-03-27 20:53 | NUR ---
LAP REGULATOR INITIAL NOTE PT RECEIVED IN NO ACUTE DISTRESS WITH FAMILY AT BEDSIDE. PT IS A/O X 2/3 AND ABLE TO URINATE IN URINAL BUT HAS A DIAPER. ON TELE WITH ST 106. SKIN IS INTACT. IV LAC 20G RAC RUNNING 1/2 NS. COMFORT AND SAFETY MEASURES TO BE ENSURED DURING THE SHIFT. WILL CONTINUE TO MONITOR BLOOD SUGAR AND TEMP DURING THE SHIFT WELL ALL OTHER VITALS .
[2017-03-28] VITALS: BP_SYST 105; BP_SYST 145; BP_DIAS 107
[2017-03-28] MEDS: IV 1/2NS 1000 ML 1,000 ML IV PRN (02:32)
[2017-03-28 04:00] VITALS: BP 119/70
[2017-03-28] MEDS: INSULIN REGULAR, HUMAN 100 UNIT/ML 3 ML VIAL SQ PRN ×5 (05:11→21:58)
[2017-03-28] MEDS: BLOOD SUGAR DIAGNOSTIC 1 EACH STRIP IN SCH ×5 (05:12→21:49)
[2017-03-28] MEDS: PIPERACILLIN /TAZOBACTAM 3.375 G in IV D5W 50 ML IV SCH ×3 (05:18→18:45)
[2017-03-28 06:48] LABS: CALCIUM, SERUM 8.3 mg/dL (8.5-10.1); PHOSPHORUS 2.3 mg/dL (2.5-4.9); POTASSIUM 3.8 mmol/L (3.5-5.1)
[2017-03-28 07:25] LABS: BILIRUBIN,DIRECT 0.2 mg/dL (0.0-0.2); BILIRUBIN,TOTAL 0.9 mg/dL (0.2-1.0); TOTAL PROTEIN, SERUM 5.8 g/dL (6.4-8.2)
[2017-03-28] MEDS: ALBUTEROL FS 2.5 MG/3 ML VIAL.NEB NEB SCH ×3 (07:27→19:45)
--- NOTE | 2017-03-28 07:28 | NUR ---
STUDENT COUNSELOR NOTE RECEIVED PATIENT IN BED, RESTING COMFORTABLY, NO S/S OF PAIN OR DISTRESS NOTED. BED IN THE LOW POSITION, 2 SIDES RAILS UP. WILL CONTINUE TO MONITOR
[2017-03-28 08:00] VITALS: BP 121/80
[2017-03-28] MEDS: PANTOPRAZOLE 40 MG VIAL IV SCH (10:00)
[2017-03-28] MEDS: VANCOMYCIN 1 GM in IV D5W 250 ML IV SCH (10:00)
[2017-03-28] MEDS: THIAMINE HCL 100 MG TABLET PO SCH ×2 (10:00→16:22)
[2017-03-28] MEDS: LACTOBACILLUS RHAMNOSUS GG 1 EACH CAP.SPRINK PO SCH ×2 (10:00→16:22)
[2017-03-28] MEDS: FOLIC ACID 1 MG TABLET PO SCH ×2 (10:01→16:22)
[2017-03-28] MEDS: HEPARIN SODIUM, PORCINE 5000 UNITS/1 ML VIAL SQ SCH ×2 (10:01→21:57)
[2017-03-28] MEDS: ACETAMINOPHEN 325 MG TABLET PO PRN ×2 (12:32→18:57)
--- NOTE | 2017-03-28 12:46 | NUR ---
INSERTING MACHINE OPERATOR NOTE WAS NOT ABLE TO ADMINISTER ZOSYN AT 12PM VIA IV YET BECAUSE WHILE PATIENT WAS GETTING IV VANCO, PATIENT KEPT ON MOVING ARM, WILL ADMINISTER ZOSYN ONCE PATIENT IS DONE WITH VANCOMYCIN IV
--- NOTE | 2017-03-28 13:55 | NUR ---
MS RN NOTES PATIENT VANCO STILL RUNNING. CONTINUES TO MOVE ARM AND OCCLUDE IV DUE TO POSITIONING. EDUCATED IMPORTANCE OF IVF AND ANTIBIOTICS. PATIENT STATES UNDERSTANDING BUT CONTINUES OCCLUDE IV. PATIENT REFUSING ANOTHER IV ACCESS AT THIS TIME.WILL CONTINUE TO MONITOR CLOSELY
[2017-03-28] MEDS ORDERED: K PHOS NEUTRAL 250 MG TABLET PO ONE (14:30)
[2017-03-28] MEDS ORDERED: IBUPROFEN 400 MG TABLET PO PRN (15:00)
--- NOTE | 2017-03-28 15:10 | NUR ---
MS RN NOTES MD AWARE OF 100.9 TEMP HIGHER AFTER TYLENOL. PATIENT ALLOWING ICE PACKS AT THIS TIME. WILL GIVE PRN ORDERED MOTRIN WELL. PATIENT REMOVED SHEETS/BLANKETS
[2017-03-28] MEDS: IBUPROFEN 600 MG TABLET PO PRN (15:11)
[2017-03-28] MEDS: ACETYLCYSTEINE 20% SOLN 800 MG/4 ML VIAL NEB SCH ×2 (15:30→19:45)
[2017-03-28 16:00] VITALS: BP 140/99
[2017-03-28] MEDS: LEVOFLOXACIN 750 MG /D5W 150ML 750 MG in PREMIX 1 EA IV SCH (16:36)
--- NOTE | 2017-03-28 19:16 | NUR ---
MED SURGE IAIN HEADLEY RECEIVED PATIENT IN BED, FAMILY AT BEDSIDE , NO S/S OF PAIN OR DISCOMFORT NOTED. ALL DUE MEDS ARE GIVEN, CALL LIGHT IN REACH, BED IN LOW POSITION, 2 SIDE RAILS UP, NO S/S OF DISTRESS, ALL NEEDS ATTENDED
[2017-03-28 20:00] VITALS: BP 152/96
[2017-03-28] MEDS: INSULIN DETEMIR 100 UNIT/ML CARTRIDGE SQ SCH (21:58)
[2017-03-28] MEDS ORDERED: ZOLPIDEM TARTRATE 5 MG TABLET ONE (22:00)
[2017-03-28] MEDS: ZOLPIDEM TARTRATE 5 MG TABLET PO PRN (22:01)
--- NOTE | 2017-03-28 22:03 | NUR ---
MS-1/INSECT CONTROL INSPECTOR PT POC GLUCOSE WAS 456 20UNITS REGULAR INSULIN GIVEN AND MD NOTIFIED AWAITING CALL BACK. WILL CONTINUE TO MONITOR.
--- NOTE | 2017-03-28 22:53 | NUR ---
MS-1/SERVICE VEHICLE OPERATOR DR. RAMSEY CALLED BACK NO NEW ORDERS FOR ADDITIONAL INSULIN COVERAGE. WILL RECHECK POC GLUCOSE ORDERED.
[2017-03-29] MEDS: BLOOD SUGAR DIAGNOSTIC 1 EACH STRIP IN SCH ×6 (00:40→21:47)
[2017-03-29] MEDS: PIPERACILLIN /TAZOBACTAM 3.375 G in IV D5W 50 ML IV SCH ×4 (00:40→19:48)
[2017-03-29] MEDS: IV 1/2NS 1000 ML 1,000 ML IV PRN ×2 (00:40→21:42)
[2017-03-29] MEDS: INSULIN REGULAR, HUMAN 100 UNIT/ML 3 ML VIAL SQ PRN ×5 (00:50→21:45)
[2017-03-29] MEDS: ALBUTEROL FS 2.5 MG/3 ML VIAL.NEB NEB SCH ×4 (01:12→19:40)
[2017-03-29] MEDS: ACETAMINOPHEN 325 MG TABLET PO PRN ×3 (01:53→15:58)
[2017-03-29] MEDS: IBUPROFEN 600 MG TABLET PO PRN ×5 (03:59→23:29)
[2017-03-29 04:00] VITALS: BP 119/76
[2017-03-29 06:29] LABS: BASOPHILS % (AUTO) 0.2 % (0.0-2.0); EOSINOPHILS # (AUTO) 0.3 /CMM (0.0-0.7); EOSINOPHILS % (AUTO) 2.1 % (0.0-6.0); HEMATOCRIT 31 % (39-51); HEMOGLOBIN 10.7 g/dL (13.5-17.5); LYMPHOCYTES # (AUTO) 1.8 /CMM (0.8-4.8); LYMPHOCYTES % (AUTO) 13.2 % (20.0-44.0); MEAN CORPUSCULAR HEMOGLOBIN 31 PG (26.0-33.0); MEAN CORPUSCULAR HGB CONC 34 g/dl (31.0-36.0); MEAN CORPUSCULAR VOLUME 92 fL (80-96); MONOCYTES # (AUTO) 1.1 /CMM (0.1-1.30); MONOCYTES % (AUTO) 8.3 % (2.0-12.0); NEUTROPHILS # (AUTO) 10.5 /CMM (1.8-8.9); NEUTROPHILS % (AUTO) 76.2 % (43.0-81.0); PLATELET COUNT (AUTO) 189 /CMM (150-450); RDW COEFFICIENT OF VARIATION 12.8 (11.5-15.0); RED BLOOD CELL COUNT(AUTO) 3.42 MIL/uL (4.5-6.0); WHITE BLOOD COUNT (AUTO) 13.8 K/uL (4.3-11.0)
[2017-03-29 06:48] LABS: CALCIUM, SERUM 8.4 mg/dL (8.5-10.1); MAGNESIUM 1.6 mg/dL (1.8-2.4); PHOSPHORUS 2.9 mg/dL (2.5-4.9); POTASSIUM 3.2 mmol/L (3.5-5.1)
[2017-03-29] MEDS: ACETYLCYSTEINE 20% SOLN 800 MG/4 ML VIAL NEB SCH ×3 (07:21→19:40)
[2017-03-29] MEDS: FOLIC ACID 1 MG TABLET PO SCH ×2 (08:27→17:33)
[2017-03-29] MEDS: LACTOBACILLUS RHAMNOSUS GG 1 EACH CAP.SPRINK PO SCH ×2 (08:27→17:33)
[2017-03-29] MEDS: THIAMINE HCL 100 MG TABLET PO SCH ×2 (08:27→17:33)
[2017-03-29] MEDS: PANTOPRAZOLE 40 MG VIAL IV SCH (08:27)
[2017-03-29] MEDS: HEPARIN SODIUM, PORCINE 5000 UNITS/1 ML VIAL SQ SCH ×2 (08:57→21:43)
--- NOTE | 2017-03-29 09:00 | NUR ---
MED SURGE IAIN HEADLEY RECEIVED PATIENT IN BED, ROOM AIR, NO S/S OF PAIN OR DISCOMFORT NOTED. UPON MEDICATION ADMINISTRATION PATIENT REPEATEDLY DROPS THE MEDICATION CUP ON THE FLOOR. HOWEVER ALL DUE MEDS ARE GIVEN, CALL LIGHT IN REACH, BED IN LOW POSITION, 2 SIDE RAILS UP, NO S/S OF DISTRESS, ALL NEEDS ATTENDED
[2017-03-29] MEDS ORDERED: POTASSIUM CHLORIDE 20 MEQ TAB.PRT.SR PO ONE (10:45)
--- NOTE | 2017-03-29 11:01 | NUR ---
RN NOTE FACE SHEET SENT TO PSYCH DEPARTMENT TO PLACE PATIENT ON THIARNAV LOPEZ PSYCH EVALUATION PLACED DUE TO PATIENT STATING DEPRESSION
--- NOTE | 2017-03-29 11:55 | NUR ---
RN NOTE PATIENT REQUEST TO HOLD IV MAG REPLACEMENT AND ALSO ANTIBIOTICS UNTIL HE FINISH [facility] WITH HIS FAMILY RN ACKNOWLEDGES AND STOPS FLUIDS AT THIS TIME
[2017-03-29] MEDS: Magnesium 1GM/D5W 100ML PREMIX 100 ML IV SCH ×2 (15:55→17:34)
[2017-03-29] MEDS: LEVOFLOXACIN 750 MG /D5W 150ML 750 MG in PREMIX 1 EA IV SCH (18:39)
--- NOTE | 2017-03-29 18:58 | NUR ---
rn closing note patient in bed resting no complaints of pain at this time , family at bedside delay in iv administration due to family visiting and iv infiltration new iv placed in right hand 20 g room air no sob noted patient helped assist in adls, patient has increased activity level and patient still has blood in sputum due to previous intubation , patient vitals wnl rn will endorse care to pm rn
--- NOTE | 2017-03-29 19:15 | NUR ---
RN INITIAL NOTES RECEIVED PATIENT IN BED, AWAKE AND ALERT. PATIENT DENIES ANY PAIN AND DISCOMFORT. ON ROOM AIR, NO RESPIRATORY DISTRESS. PATIENT WITH OCCASIONAL COUGHING, ABLE TO EXPECTORATE SPUTUM, MINIMAL AMOUNT, BREATHING TREATMENT ORDERED. WITH L HAND G20, IVF ORDERED, NO SIGNS OF INFILTRATION. PATIENT'S NEEDS ANTICIPATED AND MET. SAFETY AND COMFORT ENSURED. BED IN LOW AND LOCKED POSITION. CALL LIGHT IN REACH .WILL MONITOR.
[2017-03-29 20:00] VITALS: BP 149/107
[2017-03-29] MEDS: INSULIN DETEMIR 100 UNIT/ML CARTRIDGE SQ SCH (21:44)
[2017-03-29] MEDS: ZOLPIDEM TARTRATE 5 MG TABLET PO PRN (23:29)
[2017-03-30] MEDS: ALBUTEROL FS 2.5 MG/3 ML VIAL.NEB NEB SCH ×4 (00:49→19:04)
[2017-03-30] MEDS: ACETAMINOPHEN 325 MG TABLET PO PRN ×3 (00:55→21:35)
[2017-03-30] MEDS: PIPERACILLIN /TAZOBACTAM 3.375 G in IV D5W 50 ML IV SCH ×4 (00:55→18:08)
[2017-03-30] MEDS: BLOOD SUGAR DIAGNOSTIC 1 EACH STRIP IN SCH ×6 (00:55→21:35)
[2017-03-30] MEDS: INSULIN REGULAR, HUMAN 100 UNIT/ML 3 ML VIAL SQ PRN ×5 (01:00→21:37)
[2017-03-30 04:00] VITALS: BP 146/98
[2017-03-30 05:46] LABS: BASOPHILS % (AUTO) 0.2 % (0.0-2.0); EOSINOPHILS # (AUTO) 0.4 /CMM (0.0-0.7); EOSINOPHILS % (AUTO) 3.7 % (0.0-6.0); HEMATOCRIT 29 % (39-51); HEMOGLOBIN 9.8 g/dL (13.5-17.5); LYMPHOCYTES # (AUTO) 1.4 /CMM (0.8-4.8); LYMPHOCYTES % (AUTO) 14.6 % (20.0-44.0); MEAN CORPUSCULAR HEMOGLOBIN 31 PG (26.0-33.0); MEAN CORPUSCULAR HGB CONC 34 g/dl (31.0-36.0); MEAN CORPUSCULAR VOLUME 91 fL (80-96); MONOCYTES # (AUTO) 1.1 /CMM (0.1-1.30); MONOCYTES % (AUTO) 11.8 % (2.0-12.0); NEUTROPHILS # (AUTO) 6.7 /CMM (1.8-8.9); NEUTROPHILS % (AUTO) 69.7 % (43.0-81.0); PLATELET COUNT (AUTO) 271 /CMM (150-450); RDW COEFFICIENT OF VARIATION 12.9 (11.5-15.0); RED BLOOD CELL COUNT(AUTO) 3.22 MIL/uL (4.5-6.0); WHITE BLOOD COUNT (AUTO) 9.6 K/uL (4.3-11.0)
[2017-03-30 06:04] LABS: CALCIUM, SERUM 8.7 mg/dL (8.5-10.1); CREATININE 0.9 mg/dL (0.6-1.3); MAGNESIUM 1.5 mg/dL (1.8-2.4); PHOSPHORUS 3.1 mg/dL (2.5-4.9); POTASSIUM 3.3 mmol/L (3.5-5.1)
--- NOTE | 2017-03-30 07:05 | NUR ---
RN CLOSING NOTES PATIENT IN BED, RESTING COMFORTABLY, NO ACUTE DISTRESS AND CHANGE IN CONDITION OBSERVED OVERNIGHT. IVF ORDERED. PATIENT KEPT CLEAN AND DRY. DUE MEDS GIVEN ORDERED. AM LABS DRAWN. PATIENT'S NEEDS ANTICIPATED AND MET. SAFETY AND COMFORT ENSURED. WILL ENDORSE ACCORDINGLY FOR CONTINUITY OF CARE.
[2017-03-30] MEDS: ACETYLCYSTEINE 20% SOLN 800 MG/4 ML VIAL NEB SCH ×3 (07:32→19:04)
[2017-03-30 08:00] VITALS: BP 137/88
[2017-03-30] MEDS: FOLIC ACID 1 MG TABLET PO SCH ×2 (08:57→16:05)
[2017-03-30] MEDS: THIAMINE HCL 100 MG TABLET PO SCH ×2 (08:57→16:05)
[2017-03-30] MEDS: PANTOPRAZOLE 40 MG VIAL IV SCH (08:57)
[2017-03-30] MEDS: LACTOBACILLUS RHAMNOSUS GG 1 EACH CAP.SPRINK PO SCH ×2 (08:57→16:05)
[2017-03-30] MEDS: HEPARIN SODIUM, PORCINE 5000 UNITS/1 ML VIAL SQ SCH ×2 (08:59→20:22)
[2017-03-30] MEDS ORDERED: POTASSIUM CHLORIDE 20 MEQ TAB.PRT.SR PO SCH ×2 (11:30→13:00)
[2017-03-30 12:00] VITALS: BP 137/88
[2017-03-30] MEDS: Magnesium 1GM/D5W 100ML PREMIX 100 ML IV SCH ×2 (12:46→13:51)
[2017-03-30] MEDS: SERTRALINE HCL 25 MG TABLET PO SCH (12:46)
[2017-03-30] MEDS: LEVOFLOXACIN 750 MG /D5W 150ML 750 MG in PREMIX 1 EA IV SCH (15:58)
--- NOTE | 2017-03-30 19:00 | NUR ---
RN INITIAL NOTES RECEIVED PATIENT IN BED, AWAKE AND ALERT, WITH FAMILY AT BEDSIDE. NO ACUTE DISTRESS AT THIS TIME. DENIES ANY DISCOMFORT. PATIENT'S NEEDS ANTICIPATED AND MET. IVF ORDERED ON L HAND, NO SIGNS OF INFILTRATION. SAFETY AND COMFORT ENSURED. WILL MONITOR.
[2017-03-30 20:00] VITALS: BP 117/63
[2017-03-30] MEDS: IBUPROFEN 600 MG TABLET PO PRN (20:19)
[2017-03-30] MEDS: INSULIN DETEMIR 100 UNIT/ML CARTRIDGE SQ SCH (21:37)
[2017-03-31] MEDS: PIPERACILLIN /TAZOBACTAM 3.375 G in IV D5W 50 ML IV SCH ×3 (00:03→12:50)
[2017-03-31] MEDS: BLOOD SUGAR DIAGNOSTIC 1 EACH STRIP IN SCH ×4 (00:06→12:58)
[2017-03-31] MEDS: IV 1/2NS 1000 ML 1,000 ML IV PRN (00:07)
[2017-03-31] MEDS: INSULIN REGULAR, HUMAN 100 UNIT/ML 3 ML VIAL SQ PRN ×4 (00:09→12:58)
[2017-03-31] MEDS: ZOLPIDEM TARTRATE 5 MG TABLET PO PRN (00:20)
[2017-03-31] MEDS: ALBUTEROL FS 2.5 MG/3 ML VIAL.NEB NEB SCH ×3 (01:30→13:30)
[2017-03-31 04:00] VITALS: BP 120/74
[2017-03-31] MEDS: IBUPROFEN 600 MG TABLET PO PRN (05:46)
--- NOTE | 2017-03-31 05:50 | NUR ---
RN NOTES PATIENT'S BS CHECKED SCHEDULED [id number]. PATIENT'S BS WAS 51. PATIENT ABLE TO EAT WITH GOOD APPETITE, PROVIDED PATIENT WITH SNACKS. BS RECHECKED AND NOTED TO BE 214. CN MADE AWARE. INSULIN HELD. WILL ENDORSE ACCORDINGLY FOR MONITORING.
[2017-03-31 06:14] LABS: CALCIUM, SERUM 8.6 mg/dL (8.5-10.1); MAGNESIUM 1.6 mg/dL (1.8-2.4); PHOSPHORUS 3.8 mg/dL (2.5-4.9); POTASSIUM 3.9 mmol/L (3.5-5.1)
[2017-03-31 06:46] LABS: BASOPHILS % (AUTO) 0.4 % (0.0-2.0); EOSINOPHILS # (AUTO) 0.4 /CMM (0.0-0.7); EOSINOPHILS % (AUTO) 5.2 % (0.0-6.0); HEMATOCRIT 30 % (39-51); HEMOGLOBIN 9.7 g/dL (13.5-17.5); LYMPHOCYTES # (AUTO) 1.6 /CMM (0.8-4.8); MEAN CORPUSCULAR HEMOGLOBIN 30 PG (26.0-33.0); MEAN CORPUSCULAR HGB CONC 32 g/dl (31.0-36.0); MEAN CORPUSCULAR VOLUME 93 fL (80-96); MONOCYTES # (AUTO) 1.6 /CMM (0.1-1.30); MONOCYTES % (AUTO) 21.2 % (2.0-12.0); NEUTROPHILS # (AUTO) 3.9 /CMM (1.8-8.9); NEUTROPHILS % (AUTO) 52.2 % (43.0-81.0); PLATELET COUNT (AUTO) 398 /CMM (150-450); RDW COEFFICIENT OF VARIATION 13.1 (11.5-15.0); RED BLOOD CELL COUNT(AUTO) 3.24 MIL/uL (4.5-6.0); WHITE BLOOD COUNT (AUTO) 7.4 K/uL (4.3-11.0)
--- NOTE | 2017-03-31 06:56 | NUR ---
RN CLOSING NOTES PATIENT WITH NO ACUTE DISTRESS AND DISCOMFORT. IVF ORDERED. ALL DUE MEDS GIVEN ORDERED. AM LABS DRAWN. PATIENT'S NEEDS ANTICIPATED AND MET. SAFETY AND COMFORT ENSURED. CALL LIGHT IN REACH. WILL ENDORSE ACCORDINGLY FOR CONTINUITY OF CARE.
--- NOTE | 2017-03-31 07:05 | NUR ---
ms rn initial notes Received patient in wheelchair, awake, no SOB or distress noted. on room air with saturation of 98%. No complaint of pain or discomfort noted. IV intact and patent with IVF infusing well. Alert and oriented x 4, verbally responsive and able to make needs known. Kept patient clean and comfortable in bed, call light with in patient reach, will continue to monitor accordingly.
[2017-03-31] MEDS: ACETYLCYSTEINE 20% SOLN 800 MG/4 ML VIAL NEB SCH ×2 (07:35→14:30)
[2017-03-31] MEDS: ACETAMINOPHEN 325 MG TABLET PO PRN (07:50)
[2017-03-31 08:00] VITALS: BP 142/86
[2017-03-31] MEDS: FOLIC ACID 1 MG TABLET PO SCH (08:08)
[2017-03-31] MEDS: LACTOBACILLUS RHAMNOSUS GG 1 EACH CAP.SPRINK PO SCH (08:08)
[2017-03-31] MEDS: THIAMINE HCL 100 MG TABLET PO SCH (08:08)
[2017-03-31] MEDS: PANTOPRAZOLE 40 MG VIAL IV SCH (08:08)
[2017-03-31] MEDS: HEPARIN SODIUM, PORCINE 5000 UNITS/1 ML VIAL SQ SCH (08:09)
--- NOTE | 2017-03-31 08:11 | NUR ---
ms rn notes Blood sugar checked 429 20 units given will recheck BS. Will continue to monitor accordingly. made aware.
--- NOTE | 2017-03-31 09:52 | NUR ---
MS RN NOTES Spoke to taye LIVERY CAR DRIVER and informed regarding patient BS of 438 and per taye to give 20 units insulin extra. All orders carried out and noted and patient made aware. Will continue to monitor accordingly.
[2017-03-31] MEDS: Magnesium 1GM/D5W 100ML PREMIX 100 ML IV SCH ×2 (11:01→13:29)
[2017-03-31 12:09] LABS: BAND % (MANUAL) 1 % (0.0-5.0); LYMPHOCYTES % (MANUAL) 28 % (16-48); NEUTROPHILS % (MANUAL) 60 (42-76)
[2017-03-31 12:10] LABS: EOSINOPHILS % (MANUAL) 1 % (0-4); MONOCYTES % (MANUAL) 10 % (0-11.0)
[2017-03-31] MEDS: SERTRALINE HCL 25 MG TABLET PO SCH (12:58)
--- NOTE | 2017-03-31 13:00 | NUR ---
ms rn notes Blood sugar checked 83 no coverage give. Will continue to monitor accordingly.
[2017-03-31] MEDS ORDERED: LEVOFLOXACIN (750 MG) 750 MG TABLET PO SCH (15:00)
[2017-03-31] MEDS ORDERED: LEVO750T21 PO (15:21)
[2017-03-31] MEDS ORDERED: SERT25TA5 PO (15:21)
--- NOTE | 2017-03-31 16:20 | NUR ---
ms jewel hole cornerer notes Discharge instructions given to patient and able to understand instructions. Signed discharge paper and belongings list. Prescription given to patient. Health teaching and education rendered. Skin is intact. Pneumonia not given due to patient is <65 years old. Flu vaccine offered and refused. Explained the risk and benefits x 3 and still refused. Patient left the hospital via ambulatory and tolerated well, left in stable condition. Vital signs checked and recorded. MD and charge nurse aware.
== END 2017-03-31 16:20 | disposition home or self-care (01) | DRG 720 ==
LOC: ER 17:01 → ICU 19:41 → TELE1 03-27 17:34 → MEDSG1 03-28 10:04
PROVIDERS: ADMIT Internal Medicine; ATTEND Internal Medicine
PROC: 5A1945Z Respiratory Ventilation, 24-96 Consecutive Hours (ICD-10-PCS; principal; 2017-03-24)
PROC: 0BH17EZ Insertion of Endotracheal Airway into Trachea, Via Natural or Artificial Opening (ICD-10-PCS; principal; 2017-03-24)
DX: A41.9 Sepsis, unspecified organism (principal); N17.0 Acute kidney failure with tubular necrosis; I21.4 Non-ST elevation (NSTEMI) myocardial infarction; J96.00 Acute respiratory failure, unspecified whether with hypoxia or hypercapnia; J69.0 Pneumonitis due to inhalation of food and vomit; G93.41 Metabolic encephalopathy; E11.10 Type 2 diabetes mellitus with ketoacidosis without coma; F33.2 Major depressive disorder, recurrent severe without psychotic features; I21.A1 Myocardial infarction type 2; M62.82 Rhabdomyolysis; R65.20 Severe sepsis without septic shock; Z81.8 Family history of other mental and behavioral disorders; Z91.14 Patient's other noncompliance with medication regimen; F10.20 Alcohol dependence, uncomplicated; Y90.0 Blood alcohol level of less than 20 mg/100 ml; F19.10 Other psychoactive substance abuse, uncomplicated; D63.8 Anemia in other chronic diseases classified elsewhere; D64.9 Anemia, unspecified; E86.9 Volume depletion, unspecified; E61.1 Iron deficiency; E87.0 Hyperosmolality and hypernatremia; E11.22 Type 2 diabetes mellitus with diabetic chronic kidney disease; E11.65 Type 2 diabetes mellitus with hyperglycemia; N18.9 Chronic kidney disease, unspecified; E86.1 Hypovolemia; E86.0 Dehydration
CPT/HCPCS: 36415; 36600; 70450-TC; 71010-TC; 76770-TC; 80048-TC; 80053-TC; 80076-TC; 80202-TC; 80305; 81000-TC; 82272-TC; 82550-TC; 82553-TC; 82803-TC; 82962-TC; 83540-TC; 83605-TC; 83735-TC; 84100-TC; 84132-TC; 84484-TC; 85025-TC; 85385-TC; 85610-TC; 85730-TC; 87040-TC; 87081-TC; 87086-TC; 93307-TC; 94002-TC; 94003-TC; 94799-TC; 99082-TC; A4216; A4606; A6402; C1751; C9113; G0480; J1644; J1815; J1956; J2250; J2405; J2543; J3370; J3411; J3475; J3480; J3490; J7030; J7040; J7042; J7060; Z7610